=== PATIENT | male | born 1985 | race Caucasian/White ===

== ENCOUNTER 2016-08-23 12:41 | Emergency (ER) | payer OTHER ==
[2016-08-23 13:08] VITALS: BP 136/69
--- NOTE | 2016-08-23 13:26 | UC ---
Throat Pain/Nasal Chip HPI - HPI Summary HPI Summary: 31 Y/O male with complaint of sinus congestion and ear pain x 3 weeks. Denies fever, chills, nausea, vomiting, or diarrhea. Denies throat pain. Appetite good. - History of Current Complaint Chief Complaint: UCRespiratory Stated Complaint: SINUS,CONGESTION Time Seen by Provider: 08/23/16 12:57 Hx Obtained From: Patient Onset/Duration: Gradual Onset, Lasting Weeks Severity: Mild Pain Intensity: 0 Pain Scale Used: 0-10 Numeric - States pressure more than pain Cough: None Associated Signs & Symptoms: Positive: Negative Related History: Smoking - Epiglottits Risk Factors Epiglottis Risk Factors: Negative - Allergies/Home Medications Allergies/Adverse Reactions: Allergies Allergy/AdvReac Type Severity Reaction Status Date / Time Cefaclor [From [facility]] Allergy Unknown Unknown Verified 08/23/16 13:03 Reaction Details PMH/Surg Hx/FS Hx/Imm Hx - Surgical History Surgical History: Yes Surgery Procedure, Year, and Place: TONSILLECTOMY. left index finger was chopped off. 2000 - Family History Known Family History: Positive: None - Social History Alcohol Use: None Substance Use Type: Marijuana Substance Use Comment - Amount & Last Used: daily use- used today Smoking Status (MU): Heavy Every Day Tobacco Smoker Type: Cigarettes Amount Used/How Often: 1 PPD Length of Time of Smoking/Using Tobacco: 18 Years Have You Smoked in the Last Year: Yes Household Exposure Type: Cigarettes - Immunization History Most Recent Influenza Vaccination: Not the Season Most Recent Tetanus Shot: 06/17/15 Review of Systems Constitutional: Negative Skin: Negative Eyes: Drainage - Eyes tearing, crusty in am ENT: Ear Ache Respiratory: Shortness Of Breath Cardiovascular: Negative Gastrointestinal: Negative Genitourinary: Negative Motor: Negative Neurovascular: Negative Musculoskeletal: Negative Neurological: Negative Psychological: Negative All Other Systems Reviewed And Are Negative: Yes Physical Exam Triage Information Reviewed: Yes Appearance: Well-Appearing Vital Signs: Initial Vital Signs Temp 97.7 F 08/23/16 13:04 Pulse 78 08/23/16 13:04 Resp 16 08/23/16 13:04 BP 136/69 08/23/16 13:04 Pulse Ox 99 08/23/16 13:04 Vital Signs Reviewed: Yes Eye Exam: Normal Eyes: Positive: Conjunctiva Clear ENT Exam: Normal ENT: Positive: Nasal congestion Dental Exam: Normal Neck exam: Normal Respiratory Exam: Normal Respiratory: Positive: Lungs clear, Normal breath sounds Cardiovascular Exam: Normal Cardiovascular: Positive: RRR Abdominal Exam: Normal Abdomen Description: Positive: Nontender Bowel Sounds: Positive: Present Musculoskeletal Exam: Normal Musculoskeletal: Positive: Strength Intact Neurological Exam: Normal Neurological: Positive: Muscle Tone Normal Psychological Exam: Normal Throat Pain/Nasal Course/Dx - Differential Dx/Diagnosis Differential Diagnosis/HQI/PQRI: Pharyngitis Provider Diagnoses: Allergic rhinitis, build up of cerumen in ears. Discharge - Discharge Plan Condition: Stable Disposition: HOME Patient Education Materials: Allergic Rhinitis (ED), Cerumen Impaction (ED) Additional Instructions: Follow up with primary medical provider for worsening symptoms. Recommend Claritan or other OTC allergy medication. May use mineral oil drops in ears to soften ear wax. Do not put items such as Q-tips in ears.
== END 2016-08-23 13:52 | disposition home or self-care (01) ==
LOC: UCCORT 12:41
DX: J30.9 Allergic rhinitis, unspecified (principal); H61.23 Impacted cerumen, bilateral; Z88.1 Allergy status to other antibiotic agents; F12.90 Cannabis use, unspecified, uncomplicated; F17.210 Nicotine dependence, cigarettes, uncomplicated
CPT/HCPCS: 99211; G0463